=== PATIENT | female | born 1950 | race Caucasian/White ===

== ENCOUNTER → 2020-08-29 | Outpatient (REF) | payer MEDICARE, OTHER ==
[~2020-08-29] MED LIST: ASPI81TA26 PO; CVS5CHW2 PO; ESTR1TAB PO; FENO134C PO; FERR325T3 PO; GLIM2TAB4 PO; INVO300T PO; JANU100T PO; LOSA50TA5 PO; MELA3TAB24 PO; METF10004 PO; NEXI40CA PO; PEPC1TAB5 PO; PIOG1TAB36 PO; PRAM0.754 PO; REQU1TAB16 PO; TRIA2TA PO; TRUL10IN SC; VITA500T88 PO; VITMTA PO; ZETI10TA16 PO
== END ==
LOC: M LAB REF 17:14
PROVIDERS: ATTEND Dermatology
DX: D23.61 Other benign neoplasm of skin of right upper limb, including shoulder (principal)